=== PATIENT | female | born 1990 | race Caucasian/White ===

== ENCOUNTER 2022-10-08 13:11 | Observation (INO) | payer OTHER ==
[2022-10-08 13:55] LABS: Basophils % (A) 1 %; Eosinophils # (A) 0.2 k/uL (0-0.7); Eosinophils % (A) 2 %; HGB 13.2 gm/dL (11.4-16.0); Lymphocytes # (A) 1.5 k/uL (1.0-4.8); Lymphocytes % (A) 20 %; MCH 29.6 pg (25.0-35.0); MCHC 34.8 g/dL (31.0-37.0); Mean Platelet Volume 7.8; Monocytes # (A) 0.3 k/uL (0-1.0); Monocytes % (A) 5 %; Neutrophils # (A) 5.4 k/uL (1.3-7.7); Neutrophils % (A) 72 %; Platelet Count 322 k/uL (150-450); RBC 4.48 m/uL (3.80-5.40); RDW 12.8 % (11.5-15.5); WBC 7.6 k/uL (3.8-10.6)
[2022-10-08 14:09] LABS: ALT 19 U/L (4-34); AST 18 U/L (14-36); African American GFR (CKD) >90 (>60 ml/min/1.73 sqM); Albumin 3.9 g/dL (3.5-5.0); Alkaline Phosphatase 74 U/L (38-126); Amylase 48 U/L (30-110); Anion Gap 10 mmol/L; Blood Urea Nitrogen 11 mg/dL (7-17); Calcium 9.4 mg/dL (8.4-10.2); Carbon Dioxide 18 mmol/L (22-30); Chloride 110 mmol/L (98-107); Glucose 105 mg/dL (74-99); Lipase 66 U/L (23-300); Non-African American GFR(CKD) >90 (>60 ml/min/1.73 sqM); Potassium 4.1 mmol/L (3.5-5.1); Sodium 138 mmol/L (137-145); Total Bilirubin 0.5 mg/dL (0.2-1.3); Total Protein 7.3 g/dL (6.3-8.2)
[2022-10-08 14:14] LABS: Appearance,Urine Clear (Clear); Bacteria,Urine Rare /hpf; Bilirubin,Urine Negative (Negative); Blood,Urine Large (Negative); Color,Urine Light Yellow; Glucose,Urine (UA) Negative (Negative); Ketones,Urine Negative (Negative); Leukocyte Esterase,Urine Negative (Negative); Nitrite,Urine Negative (Negative); PH, Urine 6.5 (5.0-8.0); Protein,Urine Negative (Negative); RBC,Urine 2 /hpf (0-5); Squamous Epithelial Cell,Urine 1 /hpf (0-4); Urobilinogen,Urine <2.0 mg/dL (<2.0); WBC,Urine 1 /hpf (0-5)
[2022-10-08 14:24] LABS: HCG,Quantitative Serum <2.4 mIU/mL
--- NOTE | 2022-10-08 14:36 | US ---
EXAMINATION TYPE: US gallbladder DATE OF EXAM: 10/08/2022 COMPARISON: NONE CLINICAL INDICATION: Female, 31 years old with history of ruq abdomen pain radiates right shoulder; P t states ABD pain TECHNIQUE: Multiple sonographic images of the right upper quadrant are obtained. FINDINGS: EXAM MEASUREMENTS: Liver Length: 18.2 cm Gallbladder Wall: 0.1 cm CBD: 0.3 cm Right Kidney: 11.5 x 4.2 x 5.4 cm COLLECTOR OF INTERNAL REVENUE NOTES: Pancreas: Body wnl, head and tail obscured by overlying bowel gas Liver: Visualized portions appeared wnl Gallbladder: Somewhat contracted (pt not NPO)- probable gallstone at fundus, wall not thickened Evidence for sonographic Alvarado's sign: Yes CBD: wnl Right Kidney: wnl The visualized portions of the pancreas are within normal limits. The head and tail are secured by ov erlying bowel gas. The visualized portions of the liver are unremarkable without focal lesion. Contra cted gallbladder with gallstone within the fundus. No wall thickening or pericholecystic fluid. Per s onographer, positive sonographic Alvarado sign. Common bile duct within normal limits. Right kidney is unremarkable without evidence of hydronephrosis, shadowing calculi, or solid mass. IMPRESSION: Contracted gallbladder with cholelithiasis. No wall thickening or pericholecystic fluid however per s onographer positive sonographic Alvarado sign. Findings are equivocal for acute cholecystitis. Consider further evaluation nuclear medicine HIDA scan.
[2022-10-08] MEDS ORDERED: METOCLOPRAMIDE 5 MG/ML 2 ML VIAL IVP STA (17:44)
[2022-10-08] MEDS ORDERED: MORPHINE SULFATE 2 MG/ML SYRINGE IVP ONE (17:44)
--- NOTE | 2022-10-08 17:45 | ED ---
Abdominal Pain HPI - General Chief Complaint: Abdominal Pain Stated Complaint: Abd Pain Time Seen by Provider: 10/08/22 17:40 Source: patient, family Mode of arrival: EMS Limitations: no limitations - History of Present Illness Initial Comments: 31 year Old female presents to ED with a chief complaint of abdominal pain. Patient states shortly after eating at approximately 11 AM started to experience right upper abdominal pain. Associated nausea no vomiting. States pain is constant in nature and radiates to her shoulder. Denies chest pain shortness breath. No other complaints. - Related Data Home Medications Medication Instructions Recorded Confirmed Albuterol Sulfate [Ventolin HFA] 2 puff INHALATION RT-Q4H PRN 10/08/22 10/08/22 Cyanocobalamin (Vitamin B-12) 1,000 mcg PO DAILY 10/08/22 10/08/22 [Vitamin B-12] Ferrous Sulfate [Feosol] 325 mg PO BID 10/08/22 10/08/22 Omeprazole 20 mg PO BID 10/08/22 10/08/22 busPIRone HCl [Buspar] 5 mg PO BID 10/08/22 10/08/22 Allergies Allergy/AdvReac Type Severity Reaction Status Date / Time No Known Allergies Allergy Verified 10/08/22 17:58 Review of Systems ROS Statement: Those systems with pertinent positive or pertinent negative responses have been documented in the HPI. ROS Other: All systems not noted in ROS Statement are negative. Past Medical History Past Medical History: Asthma, Cancer, GERD/Reflux History of Any Multi-Drug Resistant Organisms: None Reported Past Surgical History: Section, Tubal Ligation Additional Past Surgical History / Comment(s): partial hysterectomy Smoking Status: Vaper Past Alcohol Use History: None Reported Past Drug Use History: None Reported General Exam Limitations: no limitations General appearance: alert, in distress Respiratory exam: Present: normal lung sounds bilaterally Cardiovascular Exam: Present: regular rate, normal rhythm GI/Abdominal exam: Present: soft, tenderness (Palpation in the right upper quadrant. Positive Alvarado sign.) Neurological exam: Present: alert, oriented X3 Psychiatric exam: Present: normal affect, normal mood Skin exam: Present: warm, dry Course Vital Signs 10/08/22 10/08/22 10/08/22 13:20 18:05 19:03 Temperature 98.8 F 98.2 F 97.9 F Pulse Rate 80 67 71 Respiratory 20 17 16 Rate Blood Pressure 106/74 113/62 97/61 O2 Sat by Pulse 98 98 96 Oximetry Medical Decision Making - Medical Decision Making Was pt. sent in by a medical professional or institution (SKY Dickens, ANIMAL CARETAKER SUPERVISOR, urgent care, hospital, or longterm...) When possible be specific @ -No Did you speak to anyone other than the patient for history (EMS, parent, family, police, friend...)? What history was obtained from this source @ -No Did you review nursing and triage notes (agree or disagree)? Why? @ -I reviewed and agree with nursing and triage notes Were old charts reviewed (outside hosp., previous admission, EMS record, old EKG, old radiological studies, urgent care reports/EKG's, longterm records)? Report findings @ -No old charts were reviewed Differential Diagnosis (chest pain, altered mental status, abdominal pain women, abdominal pain men, vaginal bleeding, weakness, fever, dyspnea, syncope, headache, dizziness, GI bleed, back pain, seizure, CVA, palpatations, mental health, musculoskeletal)? @ -Differential Abdominal Pain Women: Appendicitis, Cholecystitis, diverticulosis, ischemic bowel, pancreatitis, hepatitis, UTI, gastroenteritis, AAA, incarcerated hernia, bowel obstruction, constipation, inflammatory bowel, hepatitis, peptic ulcer disease, splenic infarction, perforated viscus, vulvitis, ovarian torsion, PID, kidney stone, placenta abruption, this is not meant to be an all-inclusive list EKG interpreted by me (3pts min.). @ -As above X-rays interpreted by me (1pt min.). @ -None done CT interpreted by me (1pt min.). @ -None done U/S interpreted by me (1pt. min.). @ -Ultrasound showed cholelithiasis with contracted gallbladder, equivocal findings for cholecystitis. What testing was considered but not performed or refused? (CT, X-rays, U/S, labs)? Why? @ -None What meds were considered but not given or refused? Why? @ -Case discussed with . Did you discuss the management of the patient with other professionals (professionals i.e. SKY Dickens, ANIMAL CARETAKER SUPERVISOR, lab, RT, psych nurse, social worker delinquency prevention, coal handling supervisor, teacher, agricultural technical officer, pillowcase sewer)? Give summary @ -No Was smoking cessation discussed for >3mins.? @ -No Was critical care preformed (if so, how long)? @ -No Were there social determinants of health that impacted care today? How? (Homelessness, low income, unemployed, alcoholism, drug addiction, transportation, low edu. Level, literacy, decrease access to med. care, fdc, rehab)? @ -No Was there de-escalation of care discussed even if they declined (Discuss DNR or withdrawal of care, Hospice)? DNR status @ -No What co-morbidities impacted this encounter? (DM, HTN, Smoking, COPD, CAD, C ancer, CVA, ARF, Chemo, Hep., AIDS, mental health diagnosis, sleep apnea, morbid obesity)? @ -None Was patient admitted / discharged? Hospital course, mention meds given and route, prescriptions, significant lab abnormalities, going to OR and other pertinent info. @ -Admission. Laboratory studies including LFTs unremarkable. Ultrasound sh ows a contracted gallbladder with a gallstone, equivocal findings of cholecystitis. She will be admitted to observation for pain control with consults to surgery. Discussed plan of care with patient who is in agreement. Undiagnosed new problem with uncertain prognosis? @ -No Drug Therapy requiring intensive monitoring for toxicity (Heparin, Nitro, Insulin, Cardizem)? @ -No Were any procedures done? @ -No Diagnosis/symptom? @ -Biliary colic Acute, or Chronic, or Acute on Chronic? @ -Acute Uncomplicated (without systemic symptoms) or Complicated (systemic symptoms)? @ -Uncomplicated Side effects of treatment? @ -No Exacerbation, Progression, or Severe Exacerbation? @ -No Poses a threat to life or bodily function? How? (Chest pain, [place], [place], pneumonia, PE, COPD, DKA, ARF, appy, cholecystitis, CVA, Diverticulitis, Homicidal, Suicidal, threat to staff... and all critical care pts) @ -No - Lab Data Result diagrams: 10/08/22 13:25 10/08/22 13:25 Lab Results 10/08/22 10/08/22 10/08/22 Range/Units 13:25 13:25 13:25 WBC 7.6 (3.8-10.6) k/uL RBC 4.48 (3.80-5.40) m/uL Hgb 13.2 (11.4-16.0) gm/dL Hct 38.0 (34.0-46.0) % MCV 85.0 (80.0-100.0) fL MCH 29.6 (25.0-35.0) pg MCHC 34.8 (31.0-37.0) g/dL RDW 12.8 (11.5-15.5) % Plt Count 322 (150-450) k/uL MPV 7.8 Neutrophils % 72 % Lymphocytes % 20 % Monocytes % 5 % Eosinophils % 2 % Basophils % 1 % Neutrophils # 5.4 (1.3-7.7) k/uL Lymphocytes # 1.5 (1.0-4.8) k/uL Monocytes # 0.3 (0-1.0) k/uL Eosinophils # 0.2 (0-0.7) k/uL Basophils # 0.0 (0-0.2) k/uL Sodium 138 (137-145) mmol/L Potassium 4.1 (3.5-5.1) mmol/L Chloride 110 H (98-107) mmol/L Carbon Dioxide 18 L (22-30) mmol/L Anion Gap 10 mmol/L BUN 11 (7-17) mg/dL Creatinine 0.57 (0.52-1.04) mg/dL Est GFR (CKD-EPI)AfAm >90 (>60 ml/min/1.73 sqM) Est GFR (CKD-EPI)NonAf >90 (>60 ml/min/1.73 sqM) Glucose 105 H (74-99) mg/dL Calcium 9.4 (8.4-10.2) mg/dL Total Bilirubin 0.5 (0.2-1.3) mg/dL AST 18 (14-36) U/L ALT 19 (4-34) U/L Alkaline Phosphatase 74 (38-126) U/L Troponin I (0.000-0.034) ng/mL Total Protein 7.3 (6.3-8.2) g/dL Albumin 3.9 (3.5-5.0) g/dL Amylase 48 (30-110) U/L Lipase 66 (23-300) U/L HCG, Quant <2.4 mIU/mL Urine Color Light Yellow Urine Appearance Clear (Clear) Urine pH 6.5 (5.0-8.0) Ur Specific Mercer 1.010 (1.001-1.035) Urine Protein Negative (Negative) Urine Glucose (UA) Negative (Negative) Urine Ketones Negative (Negative) Urine Blood Large H (Negative) Urine Nitrite Negative (Negative) Urine Bilirubin Negative (Negative) Urine Urobilinogen <2.0 (<2.0) mg/dL Ur Leukocyte Esterase Negative (Negative) Urine RBC 2 (0-5) /hpf Urine WBC 1 (0-5) /hpf Ur Squamous Epith Cells 1 (0-4) /hpf Urine Bacteria Rare H (None) /hpf 10/08/22 Range/Units 13:25 WBC (3.8-10.6) k/uL RBC (3.80-5.40) m/uL Hgb (11.4-16.0) gm/dL Hct (34.0-46.0) % MCV (80.0-100.0) fL MCH (25.0-35.0) pg MCHC (31.0-37.0) g/dL RDW (11.5-15.5) % Plt Count (150-450) k/uL MPV Neutrophils % % Lymphocytes % % Monocytes % % Eosinophils % % Basophils % % Neutrophils # (1.3-7.7) k/uL Lymphocytes # (1.0-4.8) k/uL Monocytes # (0-1.0) k/uL Eosinophils # (0-0.7) k/uL Basophils # (0-0.2) k/uL Sodium (137-145) mmol/L Potassium (3.5-5.1) mmol/L Chloride (98-107) mmol/L Carbon Dioxide (22-30) mmol/L Anion Gap mmol/L BUN (7-17) mg/dL Creatinine (0.52-1.04) mg/dL Est GFR (CKD-EPI)AfAm (>60 ml/min/1.73 sqM) Est GFR (CKD-EPI)NonAf (>60 ml/min/1.73 sqM) Glucose (74-99) mg/dL Calcium (8.4-10.2) mg/dL Total Bilirubin (0.2-1.3) mg/dL AST (14-36) U/L ALT (4-34) U/L Alkaline Phosphatase (38-126) U/L Troponin I <0.012 (0.000-0.034) ng/mL Total Protein (6.3-8.2) g/dL Albumin (3.5-5.0) g/dL Amylase (30-110) U/L Lipase (23-300) U/L HCG, Quant mIU/mL Urine Color Urine Appearance (Clear) Urine pH (5.0-8.0) Ur Specific Mercer (1.001-1.035) Urine Protein (Negative) Urine Glucose (UA) (Negative) Urine Ketones (Negative) Urine Blood (Negative) Urine Nitrite (Negative) Urine Bilirubin (Negative) Urine Urobilinogen (<2.0) mg/dL Ur Leukocyte Esterase (Negative) Urine RBC (0-5) /hpf Urine WBC (0-5) /hpf Ur Squamous Epith Cells (0-4) /hpf Urine Bacteria (None) /hpf Disposition Clinical Impression: Biliary colic Disposition: ADMITTED IP TO THIS [facility] Condition: Good Referrals: None,Stated [REFERRING] - 1-2 days Time of Disposition: 19:00
[2022-10-08] MEDS ORDERED: ACETAMINOPHEN TAB 500 MG TAB PO STA (18:30)
[2022-10-08] MEDS ORDERED: ACETAMINOPHEN TAB 325 MG TAB PO PRN (19:43)
[2022-10-08] MEDS ORDERED: NALOXONE 0.4 MG/ML 1 ML VIAL IV PRN (19:43)
[2022-10-08] MEDS ORDERED: ONDANSETRON 4 MG/2 ML VIAL IVP PRN (19:43)
[2022-10-08] MEDS: SODIUM CHLORIDE 0.9% 1,000 ML IV SCH (19:59)
[2022-10-09] MEDS ORDERED: ALBUTEROL NEBULIZED 2.5 MG/3 ML INHALATION PRN (10:40)
[2022-10-09] MEDS: PIPERACILLIN-TAZOBACTAM 3.375 GM in SODIUM CHLORIDE 0.9% 100 ML IVPB SCH ×3 (10:43→22:56)
[2022-10-09] MEDS: FERROUS SULFATE 325 MG TAB PO SCH ×2 (11:35→21:49)
[2022-10-09] MEDS: busPIRone HCl 5 MG TAB PO SCH ×2 (11:35→21:49)
--- NOTE | 2022-10-09 11:52 | P.GSCN ---
History of Present Illness Consult date: 10/09/22 History of present illness: CHIEF COMPLAINT: Abdominal pain HISTORY OF PRESENT ILLNESS: This is a 31-year-old female who presented with complaints of right upper quadrant abdominal pain. She reports pain started yesterday around noon about 20 minutes after she ate. She ate eggs with toast and a strawberry Pop Tart. She has been reporting nausea. Denies any fever or chills. Patient had a gallbladder ultrasound that showed contracted gallbladder with gallstones and a positive Alvarado sign. Patient's past surgical history includes 2 C-sections and removal of fallopian tubes laparoscopically. Patient denies any cardiac history PAST MEDICAL HISTORY: See list. PAST SURGICAL HISTORY: See list. MEDICATIONS: See list. ALLERGIES: See list. SOCIAL HISTORY: No illicit drug use. REVIEW OF SYSTEMS: CONSTITUTIONAL: Denies fever or chills. HEENT: Denies blurred vision, vision changes, or eye pain. Denies hemoptysis ENDOCRINE: Denies heat or cold intolerance. CARDIOVASCULAR: Denies chest pain or pressure. RESPIRATORY: No shortness of breath. GASTROINTESTINAL: Please refer to HPI NEURO: Denies history of seizures. PSYCH: No depression or suicidal ideation HEMATOLOGIC: Denies bleeding disorders. LYMPHATIC: The patient denies any lumps and bumps around the neck. GENITOURINARY: Denies any blood in urine or increased urinary frequency. MUSCULOSKELETAL: Denies myalgias. Denies joint swelling. Denies decreased range of motion beyond patients baseline. SKIN: Denies pruitis. Denies rash. PHYSICAL EXAM: VITAL SIGNS: Reviewed GENERAL: Well-developed in no acute distress. HEENT: No sclera icterus. Extraocular movements grossly intact. Moist buccal mucosa. Head is atraumatic, normocephalic. Hears conversational speech. No nasal drainage. NECK: Supple without lymphadenopathy. CHEST: Non-labored respirations and equal bilateral excursions. CARDIOVASCULAR: Palpable 2+ radial pulses. ABDOMEN: Soft. Nondistended. Right upper quadrant tenderness with palpation MUSCULOSKELETAL: No clubbing or cyanosis. NEUROLOGIC: No focal or lateralizing signs. Cranial nerves II through XII grossly intact. PSYCH: Appropriate affect. Alert and oriented to person, place and time. SKIN: Well perfused. Good skin turgor. LABORATORY DATA: WBC 7.6 HgB 13.2 platelets 322 Sodium 138 potassium 4.1 creatinine 0.57 Troponin negative LFTs normal lipase 66 IMAGING: Gallbladder US shows contracted gallbladder with cholelithiasis. No wall thic kening or pericholecystic fluid however positive Alvarado sign. Findings are equivocal for acute cholecystitis ASSESSMENT: 1. Acute cholecystitis 2. Right upper quadrant abdominal pain 3. History of GERD PLAN: -Patient is scheduled for robotic cholecystectomy today with Dr. Lyon -Keep patient nothing by mouth -Start IV antibiotics -Continue IV fluids -Continue supportive care -Continue pain management -GI prophylaxis Protonix Physician Immunology Specialist note has been reviewed by physician. Signing provider agrees with the documented findings, assessment, and plan of care. Past Medical History Past Medical History: Asthma, Cancer, GERD/Reflux History of Any Multi-Drug Resistant Organisms: None Reported Past Surgical History: Section, Tubal Ligation Additional Past Surgical History / Comment(s): partial hysterectomy Smoking Status: Vaper Past Alcohol Use History: None Reported Past Drug Use History: None Reported Medications and Allergies Home Medications Medication Instructions Recorded Confirmed Type Albuterol Sulfate [Ventolin HFA] 2 puff INHALATION RT-Q4H PRN 10/08/22 10/08/22 History Cyanocobalamin (Vitamin B-12) 1,000 mcg PO DAILY 10/08/22 10/08/22 History [Vitamin B-12] Ferrous Sulfate [Feosol] 325 mg PO BID 10/08/22 10/08/22 History Omeprazole 20 mg PO BID 10/08/22 10/08/22 History busPIRone HCl [Buspar] 5 mg PO BID 10/08/22 10/08/22 History Allergies Allergy/AdvReac Type Severity Reaction Status Date / Time No Known Allergies Allergy Verified 10/08/22 17:58 Surgical - Exam Vital Signs Temp Pulse Resp BP Pulse Ox 98.8 F 80 20 106/74 98 10/08/22 13:20 10/08/22 13:20 10/08/22 13:20 10/08/22 13:20 10/08/22 13:20 Results - Labs 10/08/22 13:25 10/08/22 13:25 Abnormal Lab Results - Last 24 Hours (Table) 10/08/22 10/08/22 Range/Units 13:25 13:25 Chloride 110 H (98-107) mmol/L Carbon Dioxide 18 L (22-30) mmol/L Glucose 105 H (74-99) mg/dL Urine Blood Large H (Negative) Urine Bacteria Rare H (None) /[facility] Diabetes panel 10/08/22 Range/Units 13:25 Sodium 138 (137-145) mmol/L Potassium 4.1 (3.5-5.1) mmol/L Chloride 110 H (98-107) mmol/L Carbon Dioxide 18 L (22-30) mmol/L BUN 11 (7-17) mg/dL Creatinine 0.57 (0.52-1.04) mg/dL Glucose 105 H (74-99) mg/dL Calcium 9.4 (8.4-10.2) mg/dL AST 18 (14-36) U/L ALT 19 (4-34) U/L Alkaline Phosphatase 74 (38-126) U/L Total Protein 7.3 (6.3-8.2) g/dL Albumin 3.9 (3.5-5.0) g/dL Calcium panel 10/08/22 Range/Units 13:25 Calcium 9.4 (8.4-10.2) mg/dL Albumin 3.9 (3.5-5.0) g/dL Pituitary panel 10/08/22 Range/Units 13:25 Sodium 138 (137-145) mmol/L Potassium 4.1 (3.5-5.1) mmol/L Chloride 110 H (98-107) mmol/L Carbon Dioxide 18 L (22-30) mmol/L BUN 11 (7-17) mg/dL Creatinine 0.57 (0.52-1.04) mg/dL Glucose 105 H (74-99) mg/dL Calcium 9.4 (8.4-10.2) mg/dL Adrenal panel 10/08/22 Range/Units 13:25 Sodium 138 (137-145) mmol/L Potassium 4.1 (3.5-5.1) mmol/L Chloride 110 H (98-107) mmol/L Carbon Dioxide 18 L (22-30) mmol/L BUN 11 (7-17) mg/dL Creatinine 0.57 (0.52-1.04) mg/dL Glucose 105 H (74-99) mg/dL Calcium 9.4 (8.4-10.2) mg/dL Total Bilirubin 0.5 (0.2-1.3) mg/dL AST 18 (14-36) U/L ALT 19 (4-34) U/L Alkaline Phosphatase 74 (38-126) U/L Total Protein 7.3 (6.3-8.2) g/dL Albumin 3.9 (3.5-5.0) g/dL
[2022-10-09] MEDS: SODIUM CHLORIDE 0.9% 1,000 ML IV SCH ×2 (12:07→17:19)
[2022-10-09] MEDS: PANTOPRAZOLE 40 MG/10 ML VIAL IVP SCH (12:46)
--- NOTE | 2022-10-09 14:37 | P.HPIM ---
History of Present Illness H&P Date: 10/09/22 This is a 31-year-old female with medical history of acid reflux, asthma, vape use. Patient presents to the ER with complaints of abdominal pain right upper quadrant with associated nausea which started after eating breakfast. Patient states that she had toast and eggs. Gallbladder ultrasound done in the ER reveals contracted gallbladder with cholelithiasis. Findings are equivocal for acute cholecystitis. Patient was admitted to medicine with a consultation to Gen. surgery there planning on taking patient to or today for a laparoscopic cholecystectomy. Liver enzymes are normal on admission, the white count. Urinalysis is negative. REVIEW OF SYSTEMS: CONSTITUTIONAL: No fever, no malaise, no fatigue. HEENT: No recent visual problems or hearing problems. Denied any sore throat. CARDIOVASCULAR: No chest pain, orthopnea, PND, no palpitations, no syncope. PULMONARY: No shortness of breath, no cough, no hemoptysis. GASTROINTESTINAL: Reports nausea and abdominal pain NEUROLOGICAL: No headaches, no weakness, no numbness. HEMATOLOGICAL: Denies any bleeding or petechiae. GENITOURINARY: Denies any burning micturition, frequency, or urgency. MUSCULOSKELETAL/RHEUMATOLOGICAL: Denies any joint pain, swelling, or any muscle pain. ENDOCRINE: Denies any polyuria or polydipsia. The rest of the 14-point review of systems is negative. PHYSICAL EXAMINATION: GENERAL: The patient is alert and oriented x3, not in any acute distress. Well developed, well nourished. HEENT: Pupils are round and equally reacting to light. EOMI. No scleral icterus. No conjunctival pallor. Normocephalic, atraumatic. No pharyngeal erythema. No thyromegaly. CARDIOVASCULAR: S1 and S2 present. No murmurs, rubs, or gallops. PULMONARY: Chest is clear to auscultation, no wheezing or crackles. ABDOMEN: Soft, mild RUQ tenderness, nondistended, normoactive bowel sounds. No palpable organomegaly. MUSCULOSKELETAL: No joint swelling or deformity. EXTREMITIES: No cyanosis, clubbing, or pedal edema. NEUROLOGICAL: Gross neurological examination did not reveal any focal deficits. SKIN: No rashes. Assessment and plan Abdominal pain and nausea secondary to cholelithiasis and acute cystitis History of gastroesophageal reflux disease maintained on a PPI outpatient History of asthma with no acute exacerbation Prepuce GI prophylaxis Full code Patient is receiving IV hydration is currently nothing by mouth and has been placed on empiric antibiotics with IV Zosyn patient is receiving supportive care with pain management and antiemetics and will be taken to the OR today for laparoscopic cholecystectomy. Discussed with general surgery planned for discharge home tomorrow. The impression and plan of care has been dictated by Emelia Whipple Nurse Practitioner as directed. Dr. Lewis MD I have performed a history and physical examination and medical decision making of this patient, discussed the same with the dictator, and agree with the dictators assessment and plan as written, documented as a scribe. Based on total visit time, I have performed more than 50% of this visit. Past Medical History Past Medical History: Asthma, Cancer, GERD/Reflux History of Any Multi-Drug Resistant Organisms: None Reported Past Surgical History: Section, Tubal Ligation Additional Past Surgical History / Comment(s): partial hysterectomy Smoking Status: Vaper Past Alcohol Use History: None Reported Past Drug Use History: None Reported Medications and Allergies Home Medications Medication Instructions Recorded Confirmed Type Albuterol Sulfate [Ventolin HFA] 2 puff INHALATION RT-Q4H PRN 10/08/22 10/08/22 History Cyanocobalamin (Vitamin B-12) 1,000 mcg PO DAILY 10/08/22 10/08/22 History [Vitamin B-12] Ferrous Sulfate [Feosol] 325 mg PO BID 10/08/22 10/08/22 History Omeprazole 20 mg PO BID 10/08/22 10/08/22 History busPIRone HCl [Buspar] 5 mg PO BID 10/08/22 10/08/22 History Allergies Allergy/AdvReac Type Severity Reaction Status Date / Time No Known Allergies Allergy Verified 10/08/22 17:58 Physical Exam Vitals: Vital Signs Temp Pulse Resp BP Pulse Ox 10/09/22 05:32 98.6 F 62 16 112/89 98 10/09/22 03:26 63 14 103/87 94 L 10/09/22 02:00 68 14 93/78 10/09/22 00:43 71 16 94 L 10/08/22 23:01 97.8 F 75 20 87/40 96 10/08/22 22:08 70 18 109/55 97 10/08/22 21:11 67 20 105/66 95 10/08/22 20:27 66 18 103/70 97 10/08/22 19:55 97.6 F 71 18 101/70 96 10/08/22 19:03 97.9 F 71 16 97/61 96 10/08/22 18:05 98.2 F 67 17 113/62 98 10/08/22 13:20 98.8 F 80 20 106/74 98 Results CBC & Chem 7: 10/08/22 13:25 10/08/22 13:25 Labs: Abnormal Lab Results - Last 24 Hours (Table) 10/08/22 10/08/22 Range/Units 13:25 13:25 Chloride 110 H (98-107) mmol/L Carbon Dioxide 18 L (22-30) mmol/L Glucose 105 H (74-99) mg/dL Urine Blood Large H (Negative) Urine Bacteria Rare H (None) /hpf Assessment and Plan Time with Patient: Less than 30
[2022-10-09] MEDS ORDERED: INDOCYANINE GREEN 25 MG VIAL IV STA (16:56)
[2022-10-09] MEDS ORDERED: HEPARIN SODIUM,PORCINE/PF 5,000 UNIT/0.5 ML SYRINGE SQ PRN (17:01)
[2022-10-09] MEDS ORDERED: HEPARIN SODIUM,PORCINE 5,000 UNIT/ML 1 ML VIAL SQ ONE (17:29)
[2022-10-09] MEDS ORDERED: ONDANSETRON 4 MG/2 ML VIAL IVP ONE (17:29)
[2022-10-09] MEDS ORDERED: DEXAMETHASONE SOD PHOSPHATE 4 MG/ML 1 ML VIAL IVP ONE (17:29)
[2022-10-09] MEDS ORDERED: SCOPOLAMINE 1 MG/72 HR PATCH TRANSDERM ONE (17:30)
[2022-10-09] MEDS ORDERED: LACTATED RINGERS 1,000 ML IV ONE (17:32)
[2022-10-09] MEDS ORDERED: METOCLOPRAMIDE 5 MG/ML 2 ML VIAL IVP ONE (17:33)
[2022-10-09] MEDS ORDERED: ROCURONIUM 10 MG/ML (5 ML VIAL) IV ONE (17:34)
[2022-10-09] MEDS ORDERED: diphenhydrAMINE 50 MG/ML 1 ML VIAL ONE (17:34)
[2022-10-09] MEDS ORDERED: fentaNYL (PF) 50 MCG/ML 2 ML AMP ONE (17:34)
[2022-10-09] MEDS ORDERED: MIDAZOLAM 2 MG/2 ML VIAL ONE (17:34)
[2022-10-09] MEDS ORDERED: LIDOCAINE 2% INJ 20 MG/ML (2 ML VIAL) ONE (17:34)
[2022-10-09] MEDS ORDERED: PROPOFOL 10 MG/ML 20 ML VIAL IV ONE (17:34)
[2022-10-09] MEDS ORDERED: GLYCOPYRROLATE 0.2 MG/ML 2 ML VIAL ONE (17:34)
[2022-10-09] MEDS ORDERED: HYDROmorphone (PF) 1 MG/ML ONE (17:34)
[2022-10-09] MEDS ORDERED: SUCCINYLCHOLINE CHLORIDE 200 MG/10 ML VIAL IV ONE (17:34)
[2022-10-09] MEDS ORDERED: NEOSTIGMINE 1 MG/ML 10 ML VIAL ONE (17:34)
[2022-10-09] MEDS ORDERED: BUPIVACAINE (PF) 0.25% 30 ML VIAL SQ ONE ×2 (17:35→18:03)
--- NOTE | 2022-10-09 19:02 | P.OP ---
Date of Procedure: 10/09/22 Description of Procedure: SURGEON: CHE RAMOS MD PREOPERATIVE DIAGNOSES: 1. Symptomatic gallstone with acute cholecystitis 2. Right upper quadrant abdominal pain POSTOPERATIVE DIAGNOSES: 1. Symptomatic gallstone with acute cholecystitis 2. Right upper quadrant abdominal pain 3. Chronic cholecystitis 4. Peritoneal adhesions, right upper quadrant OPERATION: Robotic-assisted da Augusto Xi laparoscopic cholecystectomy, multiport with FIREFLY ESTIMATED BLOOD LOSS: 50 mL. SPECIMENS REMOVED: Gallbladder. COMPLICATIONS: None. OPERATIVE FINDINGS: 1. Moderate scarring over entire gallbladder with peritoneal adhesions, pericholecystic with features of acute on chronic cholecystitis 2. Pelvic adhesions from prior pelvic surgery 3. Easy bleeding from skin 4. Dome down technique performed with division of cystic duct using 3 clips INDICATIONS: The patient is a 31-year-old female who presents with acute cholecystitis with symptomatic gallstones. Robotic assisted laparoscopic approach was described. Benefits and risks of the procedure including but not limited to bleeding, infection, injury to the biliary tree was described. Informed consent was obtained. DESCRIPTION OF PROCEDURE: Patient was brought to the operating room, placed in supine position. After general induction, the abdomen had been prepped and draped in standard sterile fashion. The robotic da Augusto XI system was primed. After a timeout protocol was performed, the patient had been prepped and draped in standard sterile fashion. The patient was injected with indocyanine green. A 5 mm 0 degrees laparoscopic trocar entry was performed along the left upper quadrant. The abdomen insufflated to 15 mmHg pressure which was tolerated well. Diagnostic laparoscopy demonstrated no injury to bowel viscera or mesentery. The liver surface was unremarkable. Next, two 8 mm robotic ports were placed along the right upper abdomen. The camera 8-mm port was maintained along the epigastrium. Another 8 mm port was placed along the left upper abdominal wall after exchanging the 5 mm port. Please note that the ports were placed at least 10 to 15 cm away from the target anatomy of the gallbladder. The robot was docked along the left lateral abdomen. The patient was repositioned in reverse Trendelenburg position. Using a grasper for arm 3, a grasper for arm 4, including hook cautery for arm 1, the robotic system was docked and primed as described. Instruments were interchanged by the operating room assistant including hook cautery, Bovie cautery and clip appliers. I had sat at the console. The gallbladder was scarred with peritoneal adhesions. Lysis of adhesions was performed to free the gallbladder from the surrounding tissues. Next attention was brought to the infundibulum and cystic structures. The infundibulum and cystic duct were dissected free from surrounding tissues. The cystic duct was isolated. FIREFLY was used to identify the cystic artery and cystic structures. A critical view of safety was obtained. Large PLASTIC clips were used throughout the entire case. Using a clip director council on aging, 2 clips were placed at the junction of the infundibulum and cystic duct. The cystic duct was divided between clips. Next, the cystic artery was similarly clipped and cauterized. Electro-Bovie cautery was used to remove the gallbladder from the hepatic fossa. Hemostasis was checked and found to be adequate. The robot was undocked. I re-scrubbed into the case. Using a 10 mm Endo Catch bag via the left upper quadrant incision, the specimen was removed from the abdominal cavity. All pneumoperitoneum instruments were evacuated from the abdominal cavity. The incisions were reapproximated using 4-0 Monocryl in an interrupted subcuticular fashion. Fascial defects were less than 8 mm in size. Please note along the trocar sites, local anesthetic was placed as a field block prior to insertion of all instruments. Liquid glue was applied to the skin. At the end of the procedure needle, sponge, and instrument count had been verified correct by the surgical supply assistant. The patient was transferred to postanesthesia care unit in stable condition. Intraoperative films were shared with the patient's family.
[2022-10-09] MEDS ORDERED: HYDROmorphone 1 MG/ML 1 ML SYRINGE IVP PRN (19:04)
[2022-10-09] MEDS ORDERED: ALBUTEROL NEBULIZED 2.5 MG/3 ML INHALATION ONE (19:19)
[2022-10-09] MEDS ORDERED: HYDROmorphone 0.5 MG/0.5 ML SYRINGE IVP ONE ×2 (19:26→19:36)
[2022-10-09] MEDS: HEPARIN SODIUM,PORCINE 5,000 UNIT/ML 1 ML VIAL SQ SCH (21:48)
[2022-10-09] MEDS: HYDROmorphone 0.5 MG/0.5 ML SYRINGE IVP PRN (22:55)
[2022-10-09] MEDS: ACETAMINOPHEN IV (For NPO) 1,000 MG in EMPTY BAG 1 BAG IVPB SCH (23:46)
[2022-10-10] MEDS: SODIUM CHLORIDE 0.9% 1,000 ML IV SCH ×2 (01:21→13:14)
[2022-10-10] MEDS: HYDROmorphone 0.5 MG/0.5 ML SYRINGE IVP PRN ×2 (02:51→06:23)
[2022-10-10] MEDS: ACETAMINOPHEN IV (For NPO) 1,000 MG in EMPTY BAG 1 BAG IVPB SCH ×2 (05:46→13:45)
[2022-10-10] MEDS: PANTOPRAZOLE 40 MG/10 ML VIAL IVP SCH (08:52)
[2022-10-10] MEDS: FERROUS SULFATE 325 MG TAB PO SCH (08:52)
[2022-10-10] MEDS: busPIRone HCl 5 MG TAB PO SCH (08:52)
[2022-10-10] MEDS: HEPARIN SODIUM,PORCINE 5,000 UNIT/ML 1 ML VIAL SQ SCH (08:53)
[2022-10-10] MEDS: PIPERACILLIN-TAZOBACTAM 3.375 GM in SODIUM CHLORIDE 0.9% 100 ML IVPB SCH (08:53)
[2022-10-10 08:57] VITALS: BP 101/62; PULSE 64; RESP 16; TEMP 98.5
[2022-10-10] MEDS ORDERED: PANTOPRAZOLE 40 MG/10 ML VIAL IVP SCH (09:00)
[2022-10-10 09:15] LABS: ALT 30 U/L (8-44); AST 27 U/L (13-35); Albumin 3.8 d/dL (3.8-4.9); Albumin/Globulin Ratio 1.46 Ratio (1.60-3.17); Alkaline Phosphatase 74 U/L (41-126); BUN/Creat Ratio 10.14 Ratio (12.00-20.00); Blood Urea Nitrogen 7.1 mg/dL (9.0-27.0); Calcium 9.4 mg/dL (8.7-10.3); Chloride 105 mmol/L (96-109); Globulin 2.6 d/dL (1.6-3.3); Glucose 105 mg/dL (70-110); Sodium 139 mmol/L (135-145); Total Bilirubin 0.4 mg/dL (0.3-1.2); Total Protein 6.4 d/dL (6.2-8.2)
[2022-10-10 09:16] LABS: Basophils # (A) 0.02 X 10*3/uL (0.00-0.10); Basophils % (A) 0.2 %; Eosinophils # (A) 0 X 10*3/uL (0.04-0.35); Eosinophils % (A) 0 %; HCT 34.9 % (37.2-46.3); HGB 11.8 d/dL (12.0-15.0); Lymphocytes # (A) 1.19 X 10*3/uL (0.90-5.00); Lymphocytes % (A) 12.5 %; MCH 29.3 pg (27.0-32.0); MCHC 33.8 d/dL (32.0-37.0); MCV 86.6 FL (80.0-97.0); Mean Platelet Volume 10.1 FL (9.5-12.2); Monocytes # (A) 0.55 X 10*3/uL (0.20-1.00); Monocytes % (A) 5.8 %; NRBC Per 100 WBC 0 X 10*3/uL (0.00-0.01); Neutrophils # (A) 7.72 X 10*3/uL (1.80-7.70); Neutrophils % (A) 81.3 %; Platelet Count 349 X 10*3/uL (140-440); RBC 4.03 X 10*6/uL (4.10-5.20); RDW 12.5 % (11.5-14.5)
[2022-10-10] MEDS ORDERED: HYDROcodone/APAP 5-325MG 1 EACH TAB PO STA (12:34)
--- NOTE | 2022-10-10 13:01 | P.DS ---
Providers Date of admission: 10/08/22 23:59 Attending physician: Alejandra Minaya Consults: 10/08/22 19:43 Consult Physician Urgent Consulting Provider: Lu Lyon Consult Reason/Comments: biliary colic Do you want consulting provider notified?: Already Contacted Primary care physician: Luis Miguel Bello [facility] Course: Final Diagnosis Abdominal pain and nausea secondary to cholelithiasis and acute cystitis Status post laproscopic cholecystectomy History of gastroesophageal reflux disease maintained on a PPI outpatient History of asthma with no acute exacerbation Obesity GI prophylaxis DVT prophylaxis early ambulation Full Code Discharge Disposition Patient is stable for discharge she is encouraged by general surgery medical. Patient to continue on oral pain management with Motrin as needed and tramadol for moderate to severe pain. Recommending for abdominal binder on discharge and provide patient with incentive spirometer recommending to complete 10 times an hour while awake. Patient to follow-up with Dr. Lyon in the office within one week and also patient wanted to discuss her acid reflux and a possible scope. Follow up with PCP on discharge reveal absent to 3 days. Hospital Course This is a 31-year-old female with medical history of acid reflux, asthma, vape use and prior . Patient presents to the ER with complaints of abdominal pain right upper quadrant with associated nausea which started after eating breakfast. Patient states that she had toast and eggs. Gallbladder ultrasound done in the ER reveals contracted gallbladder with cholelithiasis. Findings are equivocal for acute cholecystitis. Patient was admitted to medicine with a consultation to Gen. surgery. Liver enzymes are normal on admission, the white count. Urinalysis is negative. Patient started on empiric antibiotics with IV Zosyn. Patient underwent laparoscopic cholecystectomy with findings of moderate scarring over her entire gallbladder with peritoneal adhesions, features of acute on chronic cholecystitis. Pelvic adhesions from prior pelvic surgery and easy bleeding from the skin. Patient also underwent lysis of adhesions during the cholecystectomy. She is evaluated postoperative day #1. Reports mild abdominal pain controlled with pain medication she is receiving IV Dilaudid will be transitioned to Motrin 600 and tramadol 50 mg on discharge. Patient is passing gas, no bowel movement yet, she did tolerate diet and denies having any nausea or vomiting. No shortness of breath no chest pain. Lungs are clear, S1-S2 auscultated, abdomen is soft with normoactive bowel sounds surgical incisions are clean dry and approximated. Focal neurological exam is negative patient's alert 3. Patient will be discharged home. Please see medication reconciliation for list of current medication. Thank you for allowing us to participate in the care of this patient. The impression and plan of care has been dictated by Emelia Whipple, Nurse Practitioner as directed. Dr. Lewis MD I have performed a history and physical examination and medical decision making of this patient, discussed the same with the dictator, and agree with the dictators assessment and plan as written, documented as a scribe. Based on total visit time, I have performed more than 50% of this visit. Patient Condition at Discharge: Good Plan - Discharge Summary Discharge Rx Participant: Yes New Discharge Prescriptions: New Ibuprofen [Motrin] 600 mg PO Q8HR PRN #15 tab PRN Reason: Pain traMADol HCl [Ultram] 50 mg PO Q6HR PRN 3 Days #12 tab PRN Reason: Pain Continue Omeprazole 20 mg PO BID Ferrous Sulfate [Iron (65 MG Elemental)] 325 mg PO BID Cyanocobalamin (Vitamin B-12) [Vitamin B-12] 1,000 mcg PO DAILY busPIRone HCl [Buspar] 5 mg PO BID Albuterol Sulfate [Ventolin HFA] 2 puff INHALATION RT-Q4H PRN PRN Reason: Shortness Of Breath Discharge Medication List Albuterol Sulfate [Ventolin HFA] 2 puff INHALATION RT-Q4H PRN 10/08/22 [History] Cyanocobalamin (Vitamin B-12) [Vitamin B-12] 1,000 mcg PO DAILY 10/08/22 [History] Ferrous Sulfate [Iron (65 MG Elemental)] 325 mg PO BID 10/08/22 [History] Omeprazole 20 mg PO BID 10/08/22 [History] busPIRone HCl [Buspar] 5 mg PO BID 10/08/22 [History] Ibuprofen [Motrin] 600 mg PO Q8HR PRN #15 tab 10/10/22 [Rx] traMADol HCl [Ultram] 50 mg PO Q6HR PRN 3 Days #12 tab 10/10/22 [Rx] Follow up Appointment(s)/Referral(s): Luis Miguel Bello MD [Primary Care Provider] - 1-2 Days Lu Lyon MD [STAFF PHYSICIAN] - 1 Week Ambulatory/Diagnostic Orders: Basic Metabolic Panel [LAB.AMB] Time Frame: 3 Days, Location: None Selected Complete Blood Count w/diff [LAB.AMB] Location: None Selected Patient Instructions/Handouts: Diet for Stomach Ulcers and Gastritis (ED), GERD (Gastroesophageal Reflux Disease) (DC), *Surgery [facility] - Laparoscopic Cholecystectomy Discharge Instructions Activity/Diet/Wound Care/Special Instructions: Diet as tolerated Follow up with Dr. Lyon on discharge in 1 week Discuss GERD and scope with Dr. Lyon on f.u Recommend to avoid vaping, information regarding diet for acid reflux and gallbladder removal provided Wear abdominal binder as needed for comfort Continue with incentive spirometer 10 x an hour while awake Motrin as needed for mild pain and tramadol as needed for moderate to severe pain Discharge Disposition: HOME SELF-CARE
--- NOTE | 2022-10-10 13:24 | P.PN ---
Subjective Progress Note Date: 10/10/22 CHIEF COMPLAINT: Acute cholecystitis HISTORY OF PRESENT ILLNESS: The patient is a 31-year-old female presents with acute right upper quadrant abdominal pain acute cholecystitis. She status post robotic cholecystectomy. Pain has improved. ROS: No reports of nausea and vomiting. No bowel movements. No fevers or chills. No new chest pain. No productive sputum PHYSICAL EXAM: VITAL SIGNS: Reviewed CONSTITUTIONAL: Well developed and in no acute distress. EYES: Conjuctivae without sclera icterus. Extraocular movements grossly intact. HEAD, EARS, NOSE, THROAT: Moist buccal mucosa. Head is atraumatic, normocephalic. Hears conversational speech. No nasal drainage. RESPIRATORY: Non-labored respirations and equal bilateral excursions. CARDIOVASCULAR: Palpable 2+ radial pulses. ABDOMEN: Incisions intact. Has appropriate left upper quadrant incisional pain. MUSCULOSKELETAL: No gross deformity of the lower extremities noted. No clubbing. No cyanosis. SKIN: Good skin turgor. Well perfused. NEUROLOGIC: Cranial nerves II through XII grossly intact. No focal or lateralizing signs. PSYCH: Appropriate affect. Alert and oriented to person, place and time. CLINICAL LABS: Reviewed. LFTs within normal limits. White blood cell count normal. ASSESSMENT: 1. Right upper quadrant abdominal pain with acute cholecystitis. PLAN: 1. Clinically doing well. 2. Follow telehealth one week. 3. Patient reports requiring outpatient upper endoscopy which may be arranged. Objective - Vital Signs Vital signs: Vital Signs Temp 98.5 F 10/10/22 07:00 Pulse 64 10/10/22 07:00 Resp 16 10/10/22 08:52 BP 101/62 10/10/22 07:00 Pulse Ox 94 L 10/10/22 07:00 FiO2 Intake & Output 10/09/22 10/10/22 10/10/22 18:59 06:59 18:59 Intake Total 850 100 118 Output Total 50 Balance 800 100 118 Weight 102.058 kg Intake: IV 850 100 Oral 118 Output: Estimated Blood Loss 50 Other: Voiding Method Toilet # Voids 1 2 - Labs CBC & Chem 7: 10/10/22 06:01 10/10/22 06:01 Labs: Abnormal Lab Results - Last 24 Hours (Table) 10/10/22 10/10/22 Range/Units 06:01 06:01 RBC 4.03 L (4.10-5.20) X 10*6/uL Hgb 11.8 L (12.0-15.0) d/dL Hct 34.9 L (37.2-46.3) % Neutrophils # 7.72 H (1.80-7.70) X 10*3/uL Eosinophils # 0 L (0.04-0.35) X 10*3/uL BUN 7.1 L (9.0-27.0) mg/dL BUN/Creatinine Ratio 10.14 L (12.00-20.00) Ratio Albumin/Globulin Ratio 1.46 L (1.60-3.17) Ratio
== END 2022-10-10 13:50 | disposition home or self-care (01) ==
LOC: EC 13:11 → 6NMEDSUR 23:59
PROVIDERS: ADMIT Hospitalist; ATTEND Hospitalist
DX: K80.12 Calculus of gallbladder with acute and chronic cholecystitis without obstruction (principal); N30.00 Acute cystitis without hematuria; J45.909 Unspecified asthma, uncomplicated; K21.9 Gastro-esophageal reflux disease without esophagitis; N73.6 Female pelvic peritoneal adhesions (postinfective); E66.9 Obesity, unspecified; Z68.39 Body mass index [BMI] 39.0-39.9, adult; R23.3 Spontaneous ecchymoses; F17.290 Nicotine dependence, other tobacco product, uncomplicated; Z79.899 Other long term (current) drug therapy; Z90.711 Acquired absence of uterus with remaining cervical stump; Z98.51 Tubal ligation status; Z98.891 History of uterine scar from previous surgery
CPT/HCPCS: 47562; S2900; 36415; 76705; 80053; 81001; 81025; 82150; 83690; 84484; 84702; 85025; 88304; 93005; 96374; 96375; 99285